=== PATIENT | male | born 2000 | race Caucasian/White ===

== ENCOUNTER 2019-06-20 12:02 | Emergency (ER) | payer OTHER ==
[~2019-06-20] VITALS: Ht 182.9 cm; Wt 110.4 kg
[2019-06-20 12:05] VITALS: BP 115/67
[2019-06-20] MEDS ORDERED: IV NORMAL SALINE 1,000ML 1,000 ML IV ONE (12:15)
[2019-06-20] MEDS ORDERED: ONDANSETRON PF 4 MG/2 ML VIAL. IV ONE (12:15)
--- NOTE | 2019-06-20 12:37 | PHYS DOC ---
Adult General Chief Complaint Chief Complaint: ABDOMINAL PAIN HPI HPI 18-year-old male presents with right lower quadrant abdominal pain, nausea, and vomiting. The patient got up this morning and had some oatmeal. After he ate he laid down. He woke up a short time later with several episodes of vomiting and persistent nausea. He went to urgent care and they found him to have right lower quadrant tenderness. He was given Zofran and advised she come to the emergency room. Patient has never had abdominal surgery. He also states that he has had pain after eating recently mostly mid to lower abdomen not right upper quadrant. It is worse with spicy foods or really rich foods. He has not had a workup for his gallbladder. He denies fever or chills. Review of Systems Review of Systems Constitutional: Denies fever or chills [] Eyes: Denies change in visual acuity, redness, or eye pain [] HENT: Denies nasal congestion or sore throat [] Respiratory: Denies cough or shortness of breath [] Cardiovascular: No additional information not addressed in HPI [] GI: Right lower quadrant abdominal pain, nausea, vomiting. Denies bloody stools or diarrhea [] : Denies dysuria or hematuria [] Musculoskeletal: Denies back pain or joint pain [] Integument: Denies rash or skin lesions [] Neurologic: Denies headache, focal weakness or sensory changes [] Endocrine: Denies polyuria or polydipsia [] All other systems were reviewed and found to be within normal limits, except as documented in this note. Current Medications Current Medications Current Medications Medications (Trade) Dose Ordered Sig/David Start Time Stop Time Status Last Admin Dose Admin Ondansetron HCl (Zofran) 8 mg 1X ONCE 06/20/19 12:15 06/20/19 12:16 UNV Sodium Chloride 1,000 ml @ 1,000 mls/hr 1X ONCE 06/20/19 12:15 06/20/19 13:14 UNV Physical Exam Physical Exam Constitutional: Well developed, well nourished, no acute distress, non-toxic appearance. [] HENT: Normocephalic, atraumatic, bilateral external ears normal, oropharynx moist, no oral exudates, nose normal. [] Eyes: PERRLA, EOMI, conjunctiva normal, no discharge. [] Neck: Normal range of motion, no tenderness, supple, no stridor. [] Cardiovascular:Heart rate regular rhythm, no murmur [] Lungs & Thorax: Bilateral breath sounds clear to auscultation [] Abdomen: Bowel sounds normal, soft, right lower quadrant tenderness, no masses, no pulsatile masses. [] Skin: Warm, dry, no erythema, no rash. [] Back: No tenderness, no CVA tenderness. [] Extremities: No tenderness, no cyanosis, no clubbing, ROM intact, no edema. [] Neurologic: Alert and oriented X 3, normal motor function, normal sensory function, no focal deficits noted. [] Psychologic: Affect normal, judgement normal, mood normal. [] EKG EKG [] Radiology/Procedures Radiology/Procedures [] Impressions: Study: CT abdomen/pelvis with intravenous contrast Indication: Right lower quadrant pain Comparison: None. Technique: Helical CT imaging performed of the abdomen and pelvis after the intravenous administration of 75 cc Omnipaque 300 contrast. Sagittal and coronal reformats were obtained. Findings: The visualized lungs and heart are unremarkable. The liver, gallbladder, pancreas, spleen, adrenal glands, kidneys and urinary bladder are unremarkable. The prostate gland is within normal limits for size. Note is made that there is intermittent slight prominence of the right ureter such as at its mid aspect on image 64 series 2 and approaching the urinary bladder on image 79 series 2, however no nephrolithiasis is seen within the ureter or within the urinary bladder. No pericolonic inflammatory changes. Small amount of fluid within the proximal colon. The appendix is normal. Nondilated small bowel. Minimal prominence of the small bowel wall scattered throughout the right aspect of the abdomen and pelvis without adjacent inflammatory changes. The stomach is unremarkable. Unremarkable major vascular structures. No lymphadenopathy. No free fluid or air. Body wall soft tissues are unremarkable. Symmetric muscular bulk. No acute osseous abnormality. Impression: 1. No acute abnormality seen throughout the abdomen or pelvis to definitively explain the patient's right lower quadrant pain. Note is made that there is minimal prominence of the small bowel wall scattered throughout the bowel distributed in the right aspect of the abdomen or pelvis but there are no adjacent soft tissue inflammatory changes or pathologic dilatation. Though likely within the broad range of normal, a very mild enteritis could be considered in the appropriate clinical setting. 2. Mild intermittent prominence of the right ureter but no hydronephrosis is seen nor nephrolithiasis throughout the course of the ureter or within the urinary bladder. Electronically signed by: ZULY CRUZ MD (06/20/2019 1:12 PM) [facility] DICTATED AND SIGNED BY: ZULY CRUZ MD DATE: 06/20/19 1312 CC: CORINNE LEO DO; PETTY RAMAN MD ~ Course & Med Decision Making Course & Med Decision Making Pertinent Labs and Imaging studies reviewed. (See chart for details) The location of the patient's tenderness at this time is concerning for possible appendicitis. He may also have gallbladder disease or his current pain could be related to gallbladder issue as well. I will do CT of the abdomen and pelvis at this time. The patient's labs are unremarkable. His CT of the abdomen and pelvis possible enteritis, but no other significant findings. I will treat the patient with Zofran for home and follow up as needed. I have also advised that he follow up on his possible gallbladder issue. He is stable for discharge at this time. [] Dragon Disclaimer Dragon Disclaimer This electronic medical record was generated, in whole or in part, using a voice recognition dictation system. Departure Departure: Impression: Primary Impression: Right lower quadrant abdominal pain Additional Impression: Nausea and vomiting Disposition: 01 HOME, SELF-CARE Condition: STABLE Referrals: PETTY RAMAN MD (PCP) Patient Instructions: Nausea and Vomiting, [id number] Scripts Ondansetron (ONDANSETRON ODT) 4 Mg Tab.rapdis 1 TAB PO PRN Q6-8HRS PRN for VOMITING, #16 TAB Prov: CORINNE LEO DO 06/20/19 Problem Qualifiers Additional Impression: Nausea and vomiting Vomiting type: unspecified Vomiting Intractability: non-intractable Qualified Codes: R11.2 - Nausea with vomiting, unspecified CORINNE LEO DO Jun 20, 2019 12:37
[2019-06-20] MEDS ORDERED: IOHEXOL 300 MG/ML 75 ML VIAL. IV ONE (12:45)
[2019-06-20 13:03] LABS: ALBUMIN 4.2 g/dL (3.4-5.0); ALBUMIN/GLOBULIN RATIO 1.3 (1.0-1.7); CALCIUM 9.3 mg/dL (8.5-10.1); CREATININE 1.2 mg/dL (0.7-1.3); GFR 77.2; POTASSIUM 4.2 mmol/L (3.5-5.1); TOTAL BILIRUBIN 0.4 mg/dL (0.2-1.0); TOTAL PROTEIN 7.5 g/dL (6.4-8.2)
[2019-06-20 13:09] LABS: BASO # 0.1 x10^3/uL (0.0-0.2); BASO % 1 % (0-3); EOS # 0.1 x10^3/uL (0.0-0.7); EOS % 1 % (0-3); HEMATOCRIT 44.8 % (39.0-53.0); LYMPH # 0.6 x10^3/uL (1.0-4.8); LYMPH % 6 % (24-48); MEAN CORPUSCULAR HEMOGLOBIN 29 pg (25-35); MEAN CORPUSCULAR HGB CONC 34 g/dL (31-37); MEAN CORPUSCULAR VOLUME 87 fL (79-100); MONO # 0.4 x10^3/uL (0.0-1.1); MONO % 4 % (0-9); NEUT # 8.7 x10^3uL (1.8-7.7); NEUT % 89 % (31-73); PLATELET COUNT 197 x10^3/uL (140-400); RED BLOOD COUNT 5.16 x10^6/uL (4.30-5.70); WHITE BLOOD COUNT 9.9 x10^3/uL (4.0-11.0)
--- NOTE | 2019-06-20 13:15 | RAD ---
Study: CT abdomen/pelvis with intravenous contrast Indication: Right lower quadrant pain Comparison: None. Technique: Helical CT imaging performed of the abdomen and pelvis after the intravenous administration of 75 cc Omnipaque 300 contrast. Sagittal and coronal reformats were obtained. Findings: The visualized lungs and heart are unremarkable. The liver, gallbladder, pancreas, spleen, adrenal glands, kidneys and urinary bladder are unremarkable. The prostate gland is within normal limits for size. Note is made that there is intermittent slight prominence of the right ureter such as at its mid aspect on image 64 series 2 and approaching the urinary bladder on image 79 series 2, however no nephrolithiasis is seen within the ureter or within the urinary bladder. No pericolonic inflammatory changes. Small amount of fluid within the proximal colon. The appendix is normal. Nondilated small bowel. Minimal prominence of the small bowel wall scattered throughout the right aspect of the abdomen and pelvis without adjacent inflammatory changes. The stomach is unremarkable. Unremarkable major vascular structures. No lymphadenopathy. No free fluid or air. Body wall soft tissues are unremarkable. Symmetric muscular bulk. No acute osseous abnormality. Impression: 1. No acute abnormality seen throughout the abdomen or pelvis to definitively explain the patient's right lower quadrant pain. Note is made that there is minimal prominence of the small bowel wall scattered throughout the bowel distributed in the right aspect of the abdomen or pelvis but there are no adjacent soft tissue inflammatory changes or pathologic dilatation. Though likely within the broad range of normal, a very mild enteritis could be considered in the appropriate clinical setting. 2. Mild intermittent prominence of the right ureter but no hydronephrosis is seen nor nephrolithiasis throughout the course of the ureter or within the urinary bladder. Electronically signed by: ZULY CRUZ MD (06/20/2019 1:12 PM) [facility]
[2019-06-20] MEDS ORDERED: ONDA4TAB12 PO (14:07)
== END 2019-06-20 14:23 | disposition home or self-care (01) ==
LOC: ER 12:02
DX: R10.31 Right lower quadrant pain (principal); R11.2 Nausea with vomiting, unspecified
CPT/HCPCS: 36415; 74177; 80053; 85025; 96374; 99285; J2405; Q9967; J7030